=== PATIENT | female | born 1985 | race Caucasian/White ===

== ENCOUNTER 2017-05-23 06:40 | Inpatient (IN) | payer OTHER, MEDICAID ==
[2017-05-23 08:25] LABS: ADD MAN DIFF? NO
[2017-05-23] MEDS: LACTATED RINGER'S 1,000 ML IV ×4 (08:27→16:42)
[2017-05-23] MEDS ORDERED: METHYLERGONOVINE 0.2 MG INJ IM ×3 (08:30→15:30)
[2017-05-23] MEDS ORDERED: MISOPROSTOL 200 MCG TAB PR ×3 (08:30→15:30)
[2017-05-23] MEDS ORDERED: CEFAZOLIN 2 GM/50 ML (PMX) 50 ML IV (08:30)
[2017-05-23] MEDS ORDERED: LIDOCAINE 1% (MPF) 30 ML INJ INJ (08:30)
[2017-05-23] MEDS ORDERED: CARBOPROST 250 MCG INJ IM ×3 (08:30→15:30)
[2017-05-23] MEDS ORDERED: OXYTOCIN 30 UNITS/LR 500 ML IV ×3 (08:30→15:30)
[2017-05-23 08:31] LABS: BASOPHILS % 0.2 % (0.0-2.0); EOSINOPHILS % 0.2 % (0.0-7.0); HEMATOCRIT 43.3 % (37.0-47.0); HEMOGLOBIN 15.4 g/dl (12.0-16.0); LYMPHOCYTES # 2.5 10^3/ul (0.8-2.9); LYMPHOCYTES % 26.9 % (15.0-51.0); MEAN CORPUSCULAR HEMOGLOBIN 31.6 pg (29.0-33.0); MEAN CORPUSCULAR HGB CONC 35.6 g/dl (32.0-37.0); MEAN CORPUSCULAR VOLUME 88.9 fl (82.0-101.0); MEAN PLATELET VOLUME 10.7 fl (7.4-10.4); MONOCYTE # 0.6 10^3/ul (0.3-0.9); NEUTROPHILS % 66.3 % (39.0-77.0); PLATELET COUNT 221 10^3/UL (140-415); RED BLOOD COUNT 4.87 10^6/ul (4.20-5.40); RED CELL DISTRIBUTION WIDTH 12.7 % (11.5-14.5)
[2017-05-23 08:31] LABS: WHITE BLOOD COUNT 9.1 10^3/ul (4.8-10.8)
[2017-05-23 09:16] LABS: INR 0.84; PROTIME 11.6 Sec (11.9-14.9); PT RATIO 0.9
[2017-05-23 09:17] LABS: PARTIAL THROMBOPLASTIN TIME 24.8 Sec (25.0-35.0)
[2017-05-23 09:22] LABS: HEPATITIS B SURFACE ANTIGEN NEGATIVE (NEGATIVE)
[2017-05-23] MEDS ORDERED: CITRIC ACID/NA CITRATE 30 ML CUP (09:36)
[2017-05-23] MEDS ORDERED: ONDANSETRON 4 MG INJ IV ×2 (09:37→11:30)
[2017-05-23] MEDS: CITRIC ACID/SODIUM CITRATE 15 ML CUP PO (09:39)
[2017-05-23] MEDS: ONDANSETRON 4 MG INJ IV (09:39)
[2017-05-23] MEDS ORDERED: PHENYLephrine (100 MCG/ML) 5ML SYG (09:44)
[2017-05-23] MEDS ORDERED: OXYTOCIN 10 UNIT INJ (09:44)
[2017-05-23] MEDS ORDERED: morphine SULFATE/PF (10 MG/10 ML) INJ (09:44)
[2017-05-23] MEDS ORDERED: CITRIC ACID/SODIUM CITRATE 15 ML CUP PO (10:00)
[2017-05-23] MEDS ORDERED: ONDANSETRON 4 MG INJ (10:08)
[2017-05-23] MEDS ORDERED: DEXAMETHASONE 4 MG/ML 1 ML INJ (10:08)
[2017-05-23] MEDS ORDERED: METOCLOPRAMIDE 10 MG INJ (10:08)
[2017-05-23] MEDS ORDERED: KETOROLAC 30 MG INJ (10:08)
[2017-05-23] MEDS ORDERED: LACTATED RINGER'S 1,000 ML IV (10:51)
[2017-05-23] MEDS ORDERED: OXYCODONE/ACETAMINOPHEN (5/325) TAB PO ×4 (11:00→15:30)
[2017-05-23] MEDS ORDERED: LANOLIN 7 GM TUBE TOP (11:00)
[2017-05-23] MEDS: OXYTOCIN 30 UNITS/LR 500 ML IV ×3 (11:14→17:30)
[2017-05-23] MEDS ORDERED: NALBUPHINE HCL (10 MG/1 ML) INJ IV (11:30)
[2017-05-23] MEDS ORDERED: morphine 4 MG/ML VIAL IV (11:30)
[2017-05-23] MEDS ORDERED: ACETAMINOPHEN 500 MG TAB PO (11:30)
[2017-05-23] MEDS ORDERED: DIPHENHYDRAMINE 50 MG INJ IV (11:30)
[2017-05-23] MEDS ORDERED: NALOXONE (0.4 MG/ML) INJ IV (11:30)
[2017-05-23] MEDS ORDERED: HYDROmorphONE 0.5 MG/0.5 ML SYG IV ×2 (11:30)
[2017-05-23] MEDS ORDERED: morphine 2 MG INJ IV (11:30)
[2017-05-23] MEDS ORDERED: IBUPROFEN 600 MG TAB PO (12:00)
[2017-05-23] MEDS ORDERED: HYDROCODONE/APAP (5/325) TAB PO ×2 (15:30)
[2017-05-23] MEDS ORDERED: CEFAZOLIN 2 GM/50 ML (PMX) 50 ML IVPB (15:30)
[2017-05-23] MEDS: CEFAZOLIN 1 GM/50 ML (PMX) 50 ML IV (16:39)
[2017-05-23] MEDS: SENNA/DOCUSATE NA (8.6MG/50MG) TAB PO (21:09)
[2017-05-23 22:35] LABS: RAPID PLASMA REAGIN NONREACTIVE (NR)
[2017-05-24] MEDS: LACTATED RINGER'S 1,000 ML IV ×6 (00:04→16:04)
[2017-05-24] MEDS: IBUPROFEN 800 MG TAB PO ×3 (06:00→21:35)
[2017-05-24] MEDS: KETOROLAC 30 MG INJ IV (06:06)
[2017-05-24 08:52] LABS: ADD MAN DIFF? NO
[2017-05-24 08:56] LABS: BASOPHILS % 0.4 % (0.0-2.0); EOSINOPHILS % 0.1 % (0.0-7.0); HEMATOCRIT 32.4 % (37.0-47.0); HEMOGLOBIN 11.3 g/dl (12.0-16.0); LYMPHOCYTES # 2.3 10^3/ul (0.8-2.9); LYMPHOCYTES % 20.9 % (15.0-51.0); MEAN CORPUSCULAR HEMOGLOBIN 31.8 pg (29.0-33.0); MEAN CORPUSCULAR HGB CONC 34.9 g/dl (32.0-37.0); MEAN CORPUSCULAR VOLUME 91.3 fl (82.0-101.0); MEAN PLATELET VOLUME 10.8 fl (7.4-10.4); MONOCYTE # 0.6 10^3/ul (0.3-0.9); NEUTROPHIL # 7.8 10^3/ul (1.6-7.5); NEUTROPHILS % 72.3 % (39.0-77.0); PLATELET COUNT 169 10^3/UL (140-415); RED BLOOD COUNT 3.55 10^6/ul (4.20-5.40); RED CELL DISTRIBUTION WIDTH 12.7 % (11.5-14.5)
[2017-05-24 08:56] LABS: WHITE BLOOD COUNT 10.7 10^3/ul (4.8-10.8)
[2017-05-24] MEDS: SENNA/DOCUSATE NA (8.6MG/50MG) TAB PO ×2 (11:06→20:40)
[2017-05-24] MEDS: INFLUENZA VIRUS VACCINE 0.5 ML SYG IM* (13:53)
[2017-05-24] MEDS: FERROUS SULFATE (EC) 325 MG TAB PO (20:40)
[2017-05-25] MEDS: IBUPROFEN 800 MG TAB PO ×3 (05:24→21:33)
[2017-05-25] MEDS: FERROUS SULFATE (EC) 325 MG TAB PO ×2 (09:00→21:00)
[2017-05-25] MEDS: SENNA/DOCUSATE NA (8.6MG/50MG) TAB PO ×2 (09:20→21:33)
[2017-05-25] MEDS: LANOLIN 7 GM TUBE TOP (19:22)
[2017-05-26] MEDS: IBUPROFEN 800 MG TAB PO ×2 (05:44→13:40)
[2017-05-26] MEDS: SENNA/DOCUSATE NA (8.6MG/50MG) TAB PO (09:00)
[2017-05-26] MEDS: FERROUS SULFATE (EC) 325 MG TAB PO (09:51)
[2017-05-26] MEDS: DIPHTH/TET/ACEL PERTUSS (ADULT) 0.5 ML VIAL IM* (09:53)
== END 2017-05-26 15:30 | disposition home or self-care (01) | DRG 766 ==
LOC: OBT 06:40 → L-D 06:40 → OBT 08:11 → L-D 08:05 → PP1 14:10
PROVIDERS: Obstetrics & Gynecology
PROC: 10D00Z1 Extraction of Products of Conception, Low, Open Approach (ICD-10-PCS; principal; 2017-05-23 09:00)
PROC: 3E033VJ Introduction of Other Hormone into Peripheral Vein, Percutaneous Approach (ICD-10-PCS; 2017-05-23 09:00)
DX: O34.211 Maternal care for low transverse scar from previous cesarean delivery (principal); N73.6 Female pelvic peritoneal adhesions (postinfective); Z37.0 Single live birth; Z3A.38 38 weeks gestation of pregnancy
CPT/HCPCS: 85025; 85610; 85730; 86592; 86850; 86900; 86901; 86920; 87340; 90686; 90715; 94760; 99464